=== PATIENT | female | born 1955 | race African-American/Black ===

== ENCOUNTER 2017-03-01 19:07 | Emergency (ER) | payer MEDICAID, OTHER ==
[~2017-03-01] VITALS: Ht 165.1 cm; Wt 61.2 kg
[2017-03-01] MEDS ORDERED: NKM (19:18)
[2017-03-01] MEDS ORDERED: IBUPROFEN600 MG ORAL (20:13)
[2017-03-01] MEDS ORDERED: TRAMADOL HCL50 MG ORAL (20:13)
[2017-03-01 20:19] VITALS: BP 144/80
[2017-03-01 20:20] VITALS: BP 144/80
--- NOTE | 2017-03-01 22:02 | Emergency Room Report ---
History of Present Illness General Chief Complaint: Multiple Trauma/Fall Source: Patient Present Illness [facility] The patient is a 61-year-old female presenting with bilateral hip pain and left knee pain after falling into a hole today. The patient states that she fell into a deep hole near her house. She denies hitting head or loss of consciousness. Pain of the hips described as a 7/10 dull aching radiates bilaterally. Pain worse with walking. She denies previous injury of the hips. She denies any numbness or tingling of the legs. Pain of the left knee is described as a 6/10 dull ache and does not radiate. Pain worse with movement. She denies any other symptoms including N, V, F, chills, CP, SOB Allergies: Coded Allergies: PENICILLINS (Verified Allergy, Unknown, 03/01/17) Patient History Past Medical History: see triage record Pertinent Family History: none Last Menstrual Period: n/a Reviewed Nursing Documentation: PMH: Agreed, PSxH: Agreed Nursing Documentation-PMH Past Medical History: No Stated History Review of Systems All Other Systems: negative except mentioned in HPI Physical Exam Vital Signs Date Time Temp Pulse Resp B/P Pulse Ox O2 Delivery O2 Flow Rate FiO2 03/01/17 19:13 97.7 78 16 144/80 99 Room Air Sp02 EP Interpretation: reviewed, normal General Appearance: no apparent distress, alert, GCS 15, non-toxic Head: normocephalic, atraumatic Eyes: bilateral eye PERRL, bilateral eye normal inspection ENT: hearing grossly normal, normal pharynx, no angioedema, normal voice Neck: full range of motion, supple/symm/no masses Gastrointestinal: normal bowel sounds, non tender, soft, non-distended, no guarding, no rebound Musculoskeletal: gait/station normal, normal range of motion, no calf tenderness, pelvis stable, tender - L knee, bilat lateral hips Neurologic: alert, oriented x3, responsive, motor strength/tone normal, sensory intact, normal gait, speech normal Psychiatric: judgement/insight normal, memory normal, mood/affect normal, no suicidal/homicidal ideation Skin: normal color, no rash, warm/dry, well hydrated Lymphatic: no adenopathy Medical Decision Making PA Attestation Dr. Portillo is my supervising physician. Patient management was discussed with my supervising physician Diagnostic Impression: Primary Impression: Hip pain, bilateral Additional Impression: Contusion of knee, left ER Course The patient is a 61-year-old female presenting with bilateral hip pain and left knee pain Ddx considered include but not limited to sprain/strain, fracture, contusion PE: vitals WNL. NAD Normal gait. Pelvis is stable. There is tenderness to palpation over bilateral lateral hips. No obvious deformity. There overlying abrasions. Left knee: There is tenderness to palpation over the anterior aspect with edema. Full active range of motion X-rays are all unremarkable. She will be discharged home with pain medication. ER precautions given Other X-Ray Diagnostic Results Other X-Ray Diagnostic Results #1: X-Ray Ordered: pelvis Date: March 01, 2017 EP Interpretation: Yes Findings: no fractures, no dislocation, no soft tissue swelling Number of Views: 1 PA Scribe Text I am acting as scribe for my supervising physician. My supervising physician's interpretation of the pelvis xrays are there are no fractures, dislocations or soft tissue swelling. Other X-Ray Diagnostic Results #2: X-Ray Ordered: L knee Date: March 01, 2017 EP Interpretation: Yes Findings: no fractures, no dislocation, no soft tissue swelling Number of Views: 3 PA Scribe Text I am acting as scribe for my supervising physician. My supervising physician's interpretation of the L knee xrays are there are no fractures, dislocations or soft tissue swelling. Other X-Ray Diagnostic Results #3: X-Ray Ordered: R hip Date: March 01, 2017 EP Interpretation: Yes Findings: no fractures, no dislocation Number of Views: 2 PA Scribe Text I am acting as scribe for my supervising physician. My supervising physician's interpretation of the R hip xrays are there are no fractures, dislocations or soft tissue swelling. Last Vital Signs Date Time Temp Pulse Resp B/P Pulse Ox O2 Delivery O2 Flow Rate FiO2 03/01/17 20:20 97.7 16 144/80 99 Room Air 03/01/17 19:13 78 Status: improved Disposition: HOME, SELF-CARE Condition: Improved Scripts Tramadol Hcl* (ULTRAM*) 50 Mg Tablet 50 MG ORAL Q6H Y for For Pain, #10 TAB 0 Refills Prov: BILLY ESPINOZA P.A. 03/01/17 Ibuprofen* (MOTRIN*) 600 Mg Tablet 600 MG ORAL Q8H Y for For Pain, #30 TAB 0 Refills Prov: BILLY ESPINOZA 03/01/17 Patient Instructions: Knee Pain, Hip Pain Additional Instructions: I discussed my findings with the patient. All questions and concerns have been answered. Treatment and medication compliance have been addressed. I advised the patient that they need to follow up with PMD in 3-5 days. Return to ED if pain remains or worsens, numbness or tingling occurs, new rash is noticed, fever is noticed, or if needed for any reason. Patient verbalized understanding of discharge instructions. BILYL ESPINOZA March 01, 2017 22:01
--- NOTE | 2017-03-02 10:03 | Diagnostic Imaging Report ---
Indications: Fall, pelvic and right hip trauma, pain Technique: AP pelvis, 2 views right hip. Findings: Comparison: None No fracture, dislocation, joint space widening , surrounding soft tissue swelling/foreign body/gas, or other acute changes are identified. IMPRESSION: No evidence of acute injury to the pelvis No evidence of acute injury to the right hip.
--- NOTE | 2017-03-02 10:10 | Diagnostic Imaging Report ---
Indications: Fall, left knee trauma and pain Technique: 3 views left knee. Findings: Comparison: None No fracture, dislocation, joint space widening or effusion , surrounding soft tissue swelling/foreign body/gas, or other acute changes are identified. IMPRESSION: No evidence of acute injury to the left knee.
== END 2017-03-01 20:20 | disposition home or self-care (01) ==
LOC: EMR 19:44
DX: M25.552 Pain in left hip (principal); M25.551 Pain in right hip; S80.02XA Contusion of left knee, initial encounter; Z88.0 Allergy status to penicillin; W17.2XXA Fall into hole, initial encounter; Y92.9 Unspecified place or not applicable; Y99.8 Other external cause status
CPT/HCPCS: 72170; 99284